=== PATIENT | female | born 1970 | race Caucasian/White ===

== ENCOUNTER 2017-06-17 06:49 | Emergency (ER) | payer OTHER ==
[~2017-06-17] VITALS: Ht 167.6 cm; Wt 48.5 kg
[2017-06-17 06:50] VITALS: BP 108/73
--- NOTE | 2017-06-17 07:00 | NUR ---
PT A/OX4 BREATHING EFFORTLESSLY ON ROOM AIR, PT STATES SHE HAS BEEN HAVING PALPITATIONS SINCE LAST NIGHT AND STATES SHE HAS BEEN HAVING A HEADACHE AND BEEN FEELING DIZZY X 2 HOURS CORNETIST, PT ON MONITOR, IN GOWN, PT AT BEDSIDE, MD MADE AWARE WILL CONTINUE TO MONITOR.
--- NOTE | 2017-06-17 07:15 | NUR ---
PT REPORT GIVEN TO AUSTYN SANTIAGO FOR IGLESIA
--- NOTE | 2017-06-17 07:17 | NUR ---
IV PLACED PER MD ORDER, LABS DRAWN AND GIVEN TO LAB
[2017-06-17] MEDS ORDERED: IV NS 0.9% 1,000 ML BAG IV ONE ×2 (07:30→08:30)
[2017-06-17 07:33] LABS: BASOPHILS % (AUTO) 0.4 % (0.0-2.0); EOSINOPHILS % (AUTO) 3.5 % (0.0-6.0); HEMATOCRIT 34 % (33-45); HEMOGLOBIN 11.2 g/dL (11.5-14.8); LYMPHOCYTES # (AUTO) 2.1 /CMM (0.8-4.8); LYMPHOCYTES % (AUTO) 27.8 % (20.0-44.0); MEAN CORPUSCULAR HGB CONC 33 g/dl (31.0-36.0); MEAN CORPUSCULAR VOLUME 78 fL (82-100); MONOCYTES # (AUTO) 0.7 /CMM (0.1-1.30); MONOCYTES % (AUTO) 9.7 % (2.0-12.0); NEUTROPHILS # (AUTO) 4.4 /CMM (1.8-8.9); NEUTROPHILS % (AUTO) 58.6 % (43.0-81.0); PLATELET COUNT (AUTO) 313 /CMM (150-450); RDW COEFFICIENT OF VARIATION 14.8 (11.5-15.0); RED BLOOD CELL COUNT(AUTO) 4.33 MIL/uL (4.0-5.2); WHITE BLOOD COUNT (AUTO) 7.5 K/uL (4.3-11.0)
[2017-06-17 07:49] LABS: CALCIUM, SERUM 8.8 mg/dL (8.5-10.1); CARBON DIOXIDE 26 mmol/L (21-32); CHLORIDE 103 mmol/L (98-107); CREATININE 0.9 mg/dL (0.6-1.3); GLUCOSE 102 mg/dL (74-106); POTASSIUM 3.2 mmol/L (3.5-5.1); SODIUM SERUM 140 mmol/L (136-145); UREA NITROGEN, BLOOD 15 mg/dL (7-18)
[2017-06-17 07:55] LABS: ALANINE AMINOTRANSFERASE 20 U/L (12-78); ALBUMIN 3.7 g/dL (3.4-5.0); ALCOHOL, BLOOD < 3 mg/dL (0-0); ALKALINE PHOSPHATASE 70 U/L (46-116); ASPARTATE AMINOTRANSFERASE 15 U/L (15-37); BILIRUBIN,DIRECT 0.1 mg/dL (0.0-0.2); BILIRUBIN,TOTAL 0.2 mg/dL (0.2-1.0); TOTAL PROTEIN, SERUM 7.3 g/dL (6.4-8.2)
[2017-06-17] MEDS ORDERED: POTASSIUM CHLORIDE 20 MEQ TAB.PRT.SR PO ONE ×2 (08:00→08:35)
[2017-06-17 08:04] LABS: TROPONIN I < 0.017 ng/mL (0.00-0.056)
[2017-06-17 08:05] LABS: MAGNESIUM 2.2 mg/dL (1.8-2.4); SERUM AMMONIA 11 umol/L (11-32); THYROID STIMULATING HORMONE 4.324 uIU/mL (0.358-3.74)
[2017-06-17 08:10] LABS: INR 0.96 (0.87-1.13)
--- NOTE | 2017-06-17 08:40 | NUR ---
PT BACK FROM CT
--- NOTE | 2017-06-17 09:08 | NUR ---
Patient does not wish to proceed with medical care recommended by Dr. Martins. Patient given information related to possible complications, up to and including , which could occur as a result of leaving the hospital at this time. Patient verbalizes understanding of risks involved due to leaving against medical advice. Patient has signed AMA form. IV removed. Catheter intact and site benign. Pressure and 4x4 applied to site. No bleeding noted. No further complaints. Leaving via private car with family member. Ambulatory with steady gait.
== END 2017-06-17 09:10 | disposition left against medical advice (07) ==
LOC: ER 06:49
DX: R55 Syncope and collapse (principal); R07.9 Chest pain, unspecified; E87.6 Hypokalemia; E87.2 Acidosis; N94.6 Dysmenorrhea, unspecified; F11.20 Opioid dependence, uncomplicated; J45.909 Unspecified asthma, uncomplicated; G89.29 Other chronic pain; F31.9 Bipolar disorder, unspecified
CPT/HCPCS: 36415; 70450-TC; 71045-TC; 80048-TC; 80076-TC; 82140-TC; 82962-TC; 83605-TC; 83735-TC; 84443-TC; 84484-TC; 85025-TC; 85730-TC; A4216; A4606; G0480; J7030; J7040; Z7610

== ENCOUNTER 2017-08-13 17:28 | Emergency (ER) | payer OTHER ==
[~2017-08-13] VITALS: Ht 167.6 cm; Wt 48.5 kg
[2017-08-13 18:19] VITALS: BP 119/71
--- NOTE | 2017-08-13 18:20 | NUR ---
PRESENTS TO ER C/O LEFT GOLD LAC X 30 MIN FIELD CARE ADVOCATE. NO TRAUMA NOTED. A/OX 4. BREATHING EVEN AND UNLABORED. NO SOB, NAD, VITALS STABLE. SAFETY AND COMFORT MEASURES IN PLACE. AWAITING MD ORDERS.
[2017-08-13] MEDS ORDERED: LIDOCAINE 1%-EPI 1:100,000 20 ML VIAL ONE (18:47)
[2017-08-13] MEDS: LIDOCAINE 1%-EPI 1:100,000 20 ML VIAL TP ONE (19:02)
--- NOTE | 2017-08-13 19:03 | NUR ---
VENECIA BORJA AT BEDSIDE FOR SUTURES.
--- NOTE | 2017-08-13 19:06 | NUR ---
REPORT GIVEN TO ALISHA SANTIAGO FOR IGLESIA.
== END 2017-08-13 19:48 | disposition home or self-care (01) ==
LOC: ER 17:31
DX: S81.812A Laceration without foreign body, left lower leg, initial encounter (principal); J45.909 Unspecified asthma, uncomplicated; F31.9 Bipolar disorder, unspecified; G89.29 Other chronic pain; W18.41XA Slipping, tripping and stumbling without falling due to stepping on object, initial encounter; Y93.89 Activity, other specified; Y92.89 Other specified places as the place of occurrence of the external cause; Y99.8 Other external cause status
CPT/HCPCS: 12004; 99283; A4606; A6402; A6403 ×2; J3490; Z7610

== ENCOUNTER 2019-08-07 21:50 | Emergency (ER) | payer OTHER ==
[~2019-08-07] VITALS: Ht 167.6 cm; Wt 53.5 kg
--- NOTE | 2019-08-07 22:17 | NUR ---
PATIENT CAME TO ER BED 9 C/O LOWER ABDOMINAL PAIN THAT HAS BEEN ONGOING FOR 2 MONTHS. PATIENT STATES THAT SHE HAD BEEN DIAGNOSED WITH UTERINE FIBROIDS. C/O OF NAUSEA. AAOX4. NO SOB. BREATHING EVENLY AND UNLABORED ON ROOM AIR. CONNECTED TO MONITOR.
[2019-08-07] MEDS ORDERED: KETOROLAC TROMETHAMINE 15 MG/ML VIAL ONE (22:23)
[2019-08-07] MEDS ORDERED: MORPHINE SULFATE INJ 4 MG/ML DISP.SYRIN ONE (22:23)
[2019-08-07] MEDS ORDERED: ONDANSETRON HCL/PF 4 MG/2 ML VIAL ONE (22:23)
--- NOTE | 2019-08-07 22:29 | NUR ---
BLOOD DRAWN AND SENT TO THE LAB.
[2019-08-07] MEDS ORDERED: KETOROLAC TROMETHAMINE INJ 30 MG/ML VIAL IV ONE (22:30)
[2019-08-07] MEDS ORDERED: ONDANSETRON HCL/PF - ER 4 MG/2 ML VIAL IV ONE (22:30)
[2019-08-07] MEDS ORDERED: MORPHINE SULFATE INJ 2 MG/ML DISP.SYRIN IV ONE (22:30)
[2019-08-07 22:55] LABS: BASOPHILS % (AUTO) 0.5 % (0.0-2.0); HEMATOCRIT 29 % (33-45); LYMPHOCYTES # (AUTO) 1.4 /CMM (0.8-4.8); LYMPHOCYTES % (AUTO) 18.4 % (20.0-44.0); MEAN CORPUSCULAR HGB CONC 31 g/dl (31.0-36.0); MEAN CORPUSCULAR VOLUME 71 fL (82-100); MONOCYTES # (AUTO) 0.7 /CMM (0.1-1.30); MONOCYTES % (AUTO) 8.9 % (2.0-12.0); NEUTROPHILS # (AUTO) 5.2 /CMM (1.8-8.9); NEUTROPHILS % (AUTO) 68.2 % (43.0-81.0); PLATELET COUNT (AUTO) 216 /CMM (150-450); WHITE BLOOD COUNT (AUTO) 7.6 K/uL (4.3-11.0)
--- NOTE | 2019-08-07 23:17 | NUR ---
IV removed. Catheter intact and site benign. Pressure and 4x4 applied to site. No bleeding noted. Patient discharged to home in stable condition. Written and verbal after care instructions given. Patient verbalizes understanding of instruction.
--- NOTE | 2019-08-07 23:17 | NUR ---
Prescriptions provided to amytent. 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
--- NOTE | 2019-08-07 23:19 | NUR ---
Patient called to pick her up.
[2019-08-07 23:22] VITALS: BP 119/76
== END 2019-08-07 23:32 | disposition home or self-care (01) ==
LOC: ER 21:50
DX: D25.9 Leiomyoma of uterus, unspecified (principal); D64.9 Anemia, unspecified; J45.909 Unspecified asthma, uncomplicated; F31.9 Bipolar disorder, unspecified; Z98.890 Other specified postprocedural states
CPT/HCPCS: 36415; 85025; 96374; 96375; 99284; J1885; J2270; J2405

== ENCOUNTER 2019-12-27 15:18 | Emergency (ER) | payer OTHER ==
[~2019-12-27] VITALS: Ht 165.1 cm; Wt 54.4 kg
--- NOTE | 2019-12-27 15:18 | NUR ---
BIB C/O DOG BITE ON THE L EYE LID. PT IS AAOX4, NOT IN RESPIRATORY DISTRESS, V/S STABLE, KEPT RESTED AND COMFORTABLE. WILL CONTINUE TO MONITOR.
[2019-12-27] MEDS ORDERED: AMOX/CLAVULANATE 250 MG TABLET PO ONE (15:30)
[2019-12-27] MEDS ORDERED: TDAP [DIPH/PERTUSSIS/TET] 0.5 ML VIAL IM ONE ×2 (15:30→15:53)
--- NOTE | 2019-12-27 15:30 | NUR ---
SEEN AND EXAMINED BY .
--- NOTE | 2019-12-27 15:46 | NUR ---
FAXED ANIMAL BITE REPORT FORM TO [phone]
[2019-12-27] MEDS ORDERED: ACETAMINOPHEN ES 500 MG TABLET ONE (15:52)
[2019-12-27] MEDS ORDERED: AMOX/CLAVULANATE 250 MG TABLET ONE (15:53)
--- NOTE | 2019-12-27 16:03 | NUR ---
Patient discharged to home in stable condition. Written and verbal after care instructions given. Patient verbalizes understanding of instruction.
[2019-12-27 16:05] VITALS: BP 121/74
== END 2019-12-27 16:07 | disposition home or self-care (01) ==
LOC: ER 15:25
DX: S01.112A Laceration without foreign body of left eyelid and periocular area, initial encounter (principal); J45.909 Unspecified asthma, uncomplicated; G89.29 Other chronic pain; F32.9 Major depressive disorder, single episode, unspecified; Z98.890 Other specified postprocedural states; W54.0XXA Bitten by dog, initial encounter; Y93.89 Activity, other specified; Y92.89 Other specified places as the place of occurrence of the external cause; Y99.8 Other external cause status
CPT/HCPCS: 12011; 90471; 90715; 99283; A6403